=== PATIENT | male | born 1955 | race Caucasian/White ===

== ENCOUNTER 2019-02-03 15:14 | Emergency (ER) | payer OTHER ==
[2019-02-03] MEDS ORDERED: SODIUM CHLORIDE 0.9% 1,000 ML IV STA (16:05)
[2019-02-03] MEDS ORDERED: ONDANSETRON 4 MG/2 ML VIAL IVP STA (16:06)
[2019-02-03 16:13] LABS: Basophils % (A) 0 %; Eosinophils # (A) 0.1 k/uL (0-0.7); Eosinophils % (A) 2 %; HCT 41.9 % (39.0-53.0); HGB 13.5 gm/dL (13.0-17.5); Lymphocytes # (A) 1.5 k/uL (1.0-4.8); Lymphocytes % (A) 25 %; MCH 29.2 pg (25.0-35.0); MCHC 32.3 g/dL (31.0-37.0); MCV 90.4 fL (80.0-100.0); Mean Platelet Volume 8.5; Monocytes # (A) 0.3 k/uL (0-1.0); Monocytes % (A) 5 %; Neutrophils % (A) 66 %; Platelet Count 165 k/uL (150-450); RBC 4.63 m/uL (4.30-5.90); RDW 13.1 % (11.5-15.5); WBC 6.1 k/uL (3.8-10.6)
--- NOTE | 2019-02-03 16:14 | ED ---
General Adult HPI - General Chief complaint: Dizziness Stated complaint: Dizzy, Poss dehydrated Time Seen by Provider: 02/03/19 15:56 Source: patient Mode of arrival: ambulatory Limitations: no limitations - History of Present Illness Initial comments: Dictation was produced using [employer] dictation software. please excuse any grammatical, word or spelling errors. Chief Complaint: 63-year-old male presents with dizziness. History of Present Illness: patient is 63-year-old male he was told to come to the emergency department by his primary care physician. Patient states he's been feeling dizzy since yesterday. Patient reports that on Sunday and Sunday he has been outside more than usual attending to his lawn. He was out for several hours. He reports that during that time he was not drinking water. He reports that he was sweating profusely. Patient denies any pain complex at this time. No cough, shortness of breath. Patient denies vertiginous symptoms. He states that he feels more nauseated more than anything. No vomiting The ROS documented in this emergency department record has been reviewed and confirmed by me. Those systems with pertinent positive or negative responses have been documented in the HPI. All other systems are other negative and/or noncontributory. PHYSICAL EXAM: General Impression: Alert and oriented x3, not in acute distress HEENT: normocephalic atraumatic, no nystagmus, pupils equal round reactive to light, dry mucous members Cardiovascular: Heart regular rate and rhythm, S1&S2 audible, no murmurs, rubs or gallops Chest: Lungs clear to auscultation bilaterally, no rhonchi, no wheeze, no rales Abdomen: Bowel sounds present, abdomen soft, non-tender, non-distended, no organomegaly Musculoskeletal: Pulses present and equal in all extremities, no peripheral edema Motor: no focal deficits noted Neurological: CN II-XII grossly intact, no focal motor or sensory deficits noted Skin: Intact with no visualized rashes Psych: Normal affect and mood ED course: 63-year-old male presents with chief complaint of dizziness. Patient feels as though he over exerted himself over the weekend while out in the hot weather.EKGs benign. Ventricular rate 68, normal sinus rhythm, WA interval 146 QRS 90, QTC 410. Normal intervals. Laboratory evaluation obtained. Patient g iven intravenous fluids, Antivert and Zofran. Laboratory evaluation did not show any abnormalities. No elevated renal markers, metabolic acidosis or signs of dehydration. Patient reevaluated after intervention with improvement of symptoms. There is suspicion that patient's symptoms are secondary to mild heat exhaustion suffered over the weekend given tensely hot temperatures and history of present illness. Patient given prescription Zofran to take to maintain adequate hydration. Patient counseled on avoidance of significant heat. Return primary was discussed. Patient clear for discharge.. - Related Data Home Medications Medication Instructions Recorded Confirmed Cetirizine HCl [Zyrtec] 10 mg PO DAILY 02/03/19 02/03/19 Lactose-Reduced Food [Boost] 237 ml PO DAILY 02/03/19 02/03/19 Previous Rx's Medication Instructions Recorded Ondansetron Odt [Zofran Odt] 4 mg PO Q8HR PRN #12 tab 02/03/19 Allergies Allergy/AdvReac Type Severity Reaction Status Date / Time No Known Allergies Allergy Verified 02/03/19 16:13 Review of Systems ROS Statement: Those systems with pertinent positive or pertinent negative responses have been documented in the HPI. ROS Other: All systems not noted in ROS Statement are negative. Past Medical History Past Medical History: GERD/Reflux, Osteoarthritis (OA) History of Any Multi-Drug Resistant Organisms: None Reported Additional Past Surgical History / Comment(s): COLONOSCOPY Past Anesthesia/Blood Transfusion Reactions: No Reported Reaction Past Psychological History: Anxiety Smoking Status: Never smoker Past Alcohol Use History: Occasional Past Drug Use History: None Reported - Past Family History Father Family Medical History: Blood Disorder General Exam Limitations: no limitations Course Vital Signs 02/03/19 15:44 Temperature 97.9 F Pulse Rate 81 Respiratory 20 Rate Blood Pressure 138/74 O2 Sat by Pulse 100 Oximetry Medical Decision Making - Lab Data Result diagrams: 02/03/19 15:58 02/03/19 15:58 Lab Results 02/03/19 02/03/19 02/03/19 Range/Units 15:58 15:58 15:58 WBC 6.1 (3.8-10.6) k/uL RBC 4.63 (4.30-5.90) m/uL Hgb 13.5 (13.0-17.5) gm/dL Hct 41.9 (39.0-53.0) % MCV 90.4 (80.0-100.0) fL MCH 29.2 (25.0-35.0) pg MCHC 32.3 (31.0-37.0) g/dL RDW 13.1 (11.5-15.5) % Plt Count 165 (150-450) k/uL Neutrophils % 66 % Lymphocytes % 25 % Monocytes % 5 % Eosinophils % 2 % Basophils % 0 % Neutrophils # 4.0 (1.3-7.7) k/uL Lymphocytes # 1.5 (1.0-4.8) k/uL Monocytes # 0.3 (0-1.0) k/uL Eosinophils # 0.1 (0-0.7) k/uL Basophils # 0.0 (0-0.2) k/uL Sodium 137 (137-145) mmol/L Potassium 4.6 (3.5-5.1) mmol/L Chloride 107 (98-107) mmol/L Carbon Dioxide 26 (22-30) mmol/L Anion Gap 4 mmol/L BUN 17 (9-20) mg/dL Creatinine 0.77 (0.66-1.25) mg/dL Est GFR (CKD-EPI)AfAm >90 (>60 ml/min/1.73 sqM) Est GFR (CKD-EPI)NonAf >90 (>60 ml/min/1.73 sqM) Glucose 96 (74-99) mg/dL Plasma Lactic Acid Guillermo 1.5 (0.7-2.0) mmol/L Calcium 9.1 (8.4-10.2) mg/dL Magnesium 1.9 (1.6-2.3) mg/dL Creatine Kinase 74 (55-170) U/L Disposition Clinical Impression: Dizziness Disposition: HOME SELF-CARE Condition: Good Instructions (If sedation given, give patient instructions): Dizziness (ED) Prescriptions: Ondansetron Odt [Zofran Odt] 4 mg PO Q8HR PRN #12 tab PRN Reason: Nausea Is patient prescribed a controlled substance at d/c from ED?: No Referrals: Keaton Saucedo DO [Primary Care Provider] - 1-2 days Time of Disposition: 17:09
[2019-02-03 16:23] LABS: African American GFR (CKD) >90 (>60 ml/min/1.73 sqM); Anion Gap 4 mmol/L; Blood Urea Nitrogen 17 mg/dL (9-20); Calcium 9.1 mg/dL (8.4-10.2); Carbon Dioxide 26 mmol/L (22-30); Chloride 107 mmol/L (98-107); Creatine Kinase 74 U/L (55-170); Glucose 96 mg/dL (74-99); Magnesium 1.9 mg/dL (1.6-2.3); Potassium 4.6 mmol/L (3.5-5.1); Sodium 137 mmol/L (137-145)
[2019-02-03] MEDS ORDERED: MECLIZINE 12.5 MG TAB PO STA (16:27)
[2019-02-03 17:58] VITALS: BP 134/92; PULSE 16; RESP 62; TEMP 98.1
== END 2019-02-03 17:57 | disposition home or self-care (01) ==
LOC: EC 15:14
DX: R42 Dizziness and giddiness (principal); R11.0 Nausea; Z79.899 Other long term (current) drug therapy
CPT/HCPCS: 36415; 93005; 80048; 82550; 83605; 83735; 85025; 99284; 96374; 96361; J2405

== ENCOUNTER → 2019-03-31 | Outpatient (CLI) | payer OTHER ==
--- NOTE | 2019-03-31 10:00 | MR ---
EXAMINATION TYPE: MR cervical spine wo con DATE OF EXAM: 03/31/2019 COMPARISON: None HISTORY: Cervical disc disorder with radiculopathy TECHNIQUE: Multiplanar, multisequence images of the cervical spine were acquired. C2-C3: No evidence for degenerative disc disease. No disc bulge/herniation or protrusion. No Canal stenosis. Foramina are patent bilaterally. C3-C4: Uncovertebral joint hypertrophy and facet arthropathy results in bilateral foraminal encroachm ent. Circumferential posterior disc bulge causes mild anterior mass effect on the thecal sac, no sign ificant central stenosis. C4-C5: Minimal posterior disc bulge is noted. No significant central stenosis. There is no significan t foraminal encroachment. C5-C6: Posterior extension endplate disc complex causes mild anterior mass effect on the thecal sac. Uncovertebral joint hypertrophy contributes to cause some foraminal encroachment left greater than ri ght. C6-C7: Right posterior paracentral extension endplate disc complex causes mild anterolateral mass eff ect on the thecal sac. No significant central stenosis. There is some right-sided greater than left f oraminal encroachment. C7-T1: There is some bilateral foraminal encroachment due to uncovertebral joint hypertrophy. Minimal posterior disc bulge causes slight anterior mass effect on the thecal sac. Cervical segments are intact. There is normal alignment. Cervical spinal cord is of normal signal. Craniovertebral junction relationships are within normal limits. Suspect there is an os odontoideum present noted incidentally. Cervical vertebral bodies show preserved height. Minimal anterolisthesis grade 1 C4-5. Loss of disc height signal present at intervertebral levels compatible disc desiccatio n and degenerative disc disease, there is multilevel spondylosis as well as endplate discogenic marro w signal change. IMPRESSION: Degenerative disc disease, multilevel foraminal encroachment.
== END | disposition home or self-care (01) ==
LOC: RADMRIMAIN 08:57
PROVIDERS: ATTEND Family Medicine
DX: M50.121 Cervical disc disorder at C4-C5 level with radiculopathy (principal)
CPT/HCPCS: 72141

== ENCOUNTER → 2019-06-09 | Outpatient (CLI) | payer OTHER ==
--- NOTE | 2019-06-09 09:52 | CT ---
EXAMINATION TYPE: CT cervical spine wo con DATE OF EXAM: 06/09/2019 COMPARISON: HISTORY: Pain CT DLP: 502.[address] of the cervical spine was performed with bone and soft tissue window settings submitted . Coronal and sagittal reconstruction is obtained. C2-3: Mild degenerative disc space narrowing. Posterocentral disc bulge with mild effacement ventral thecal sac. No central stenosis or bright herniation. No foraminal encroachment C3-4: [id number] degenerative disc space narrowing. Posterior disc bulge with actually encapsul ating spur resulting in hard disc. Effacement ventral thecal sac without overt stenosis. Degenerative change of the uncovertebral joints resulting in moderate bilateral foraminal encroachment. C4-5: Mild degenerative disc space narrowing. Mild posterior disc bulge. No disc herniation or centra l stenosis. Mild right foraminal encroachment. C5-6: Severe degenerative disc space narrowing. Posterior disc bulge with partial encapsulating spur resulting in disc endplate complex. Mild central stenosis. Right greater than left foraminal encroach ment. C6-7: Severe degenerative disc space narrowing. Posterior disc bulge partially encapsulating spur. Ef facement ventral thecal sac with mild central stenosis. Bilateral foraminal encroachment being modera te in degree. C7-T1: Mild degenerative disc space narrowing. Mild posterior disc bulge. No herniation or central st enosis. Right greater than left foraminal encroachment. IMPRESSION: 1 multilevel degenerative disc disease. 2. Mild central stenosis as discussed above at C5-6 and C6-7. 3. Multilevel foraminal encroachment.
== END | disposition home or self-care (01) ==
LOC: RADCTMAIN 08:06
PROVIDERS: ATTEND Neurological Surgery
DX: M99.71 Connective tissue and disc stenosis of intervertebral foramina of cervical region (principal); M50.30 Other cervical disc degeneration, unspecified cervical region; M48.02 Spinal stenosis, cervical region
CPT/HCPCS: 72125